=== PATIENT | female | born 1955 | race Hispanic/Latino ===

== ENCOUNTER 2016-08-08 03:50 | Emergency (ER) | payer MEDICARE, MEDICAID ==
[2016-08-08 04:39] LABS: %Eosinophils 2.6 % (0.0-10.0); %Lymphocytes 16.3 % (21.0-51.0); %Monocytes 12.4 % (0.0-10.0); Hemoglobin 9.1 g/dL (12.0-16.0); Mean Corpuscular HGB CONC 33.5 g/dL (32.0-36.0); Mean Corpuscular Hemoglobin 29.9 pg (27.0-31.0); Mean Corpuscular Volume 89.4 fL (81.0-99.0); Mean Platelet Volume 5.9 fL (7.4-10.4); Platelet Count 383 thou/uL (130-400); RBC Distribution Width 13.2 % (11.5-14.5); Red Blood Cell (RBC) Count 3.05 mill/uL (4.20-5.40); White Blood Cell (WBC) Count 13.4 thou/uL (4.8-10.8)
[2016-08-08 04:40] LABS: #Basophils 0.1 thou/uL (0.0-0.2); #Eosinphils 0.4 thou/uL (0.0-0.7); #Lymphocytes 2.2 thou/uL (1.20-3.40); #Monocytes 1.7 thou/uL (0.11-0.59); #Neutrophils 9.1 thou/uL (1.40-6.50); %Basophils 0.7 % (0.0-1.0)
[2016-08-08 04:57] LABS: PTT 32.9 SEC (22.9-36.1); Prothrombin Time 13.8 SEC (12.0-14.7)
[2016-08-08 05:04] LABS: ALT (SGPT) 10 U/L (0-55); AST (SGOT) 11 U/L (5-34); Albumin 3.7 g/dL (3.4-4.8); Alkaline Phosphatase 85 U/L (40-150); Anion Gap 17 mmol/L (10-20); BUN (Urea Nitrogen) 20 mg/dL (9.8-20.1); Bilirubin, Total 0.4 mg/dL (0.2-1.2); CK (CPK) 72 U/L (29-168); Calc. Creatinine Clearance 0 mL/min (70-130); Calcium 9.3 mg/dL (7.8-10.44); Carbon Dioxide 28 mmol/L (23-31); Chloride 98 mmol/L (98-107); Estimated GFR-MDRD 78; Globulin 3.8 g/dL (2.4-3.5); Glucose 119 mg/dL (80-115); Potassium 3.5 mmol/L (3.5-5.1); Protein, Total 7.5 g/dL (5.8-8.1); Sodium 139 mmol/L (136-145)
[2016-08-08 05:09] LABS: CKMB 1.1 ng/mL (0-6.6); Troponin I Less than 0.010 ng/mL (< 0.028)
[2016-08-08 05:10] LABS: CRP (Inflammatory) 1.72 mg/dL (= or < 0.5)
[2016-08-08] MEDS ORDERED: Dexamethasone 10 MG/ML VIAL ONE (05:16)
[2016-08-08] MEDS ORDERED: methylPREDNISolone Acetate 40 mg/ml Vial ONE (05:16)
[2016-08-08] MEDS ORDERED: methylPREDNISolone Sod Succ/PF 125 MG/2 ML VIAL ONE (05:18)
[2016-08-08] MEDS ORDERED: traMADol HCl 50 MG TAB ONE (05:55)
[2016-08-08] MEDS ORDERED: diphenhydrAMINE HCl 25 MG CAP ONE (05:55)
[2016-08-08] MEDS ORDERED: diphenhydrAMINE HCl 50 MG/ML 1 ML VIAL ONE (05:55)
--- NOTE | 2016-08-08 07:38 | RAD ---
CHEST 1 VIEW: HISTORY: Chest pain. Dyspnea. COMPARISON: 05/26/16. FINDINGS: Cardiac silhouette is magnified, enlarged, and partially obscured by increasing patchy bibasilar inf iltrates. Pulmonary vasculature is more engorged with patchy bilateral perihilar infiltrates. Medi astinum is midline with aortic calcification and tracheostomy appliance. No lobar consolidation or pneumothorax are apparent. IMPRESSION: Increasing pulmonary vascular congestion. POS: NATHANIELH
== END 2016-08-08 09:10 ==
LOC: MADERS 03:50
DX: J20.9 Acute bronchitis, unspecified (principal); R07.81 Pleurodynia; D64.9 Anemia, unspecified; I10 Essential (primary) hypertension; E66.9 Obesity, unspecified
CPT/HCPCS: 71010; 80053; 82553; 83735; 83880; 84484; 85025; 85610; 85730; 86140; 93005; 94760; 96365; 96366; 96372; 96375; J1030; J1040; J1100; J1200; J1956; J2930

== ENCOUNTER 2016-09-22 16:19 | Outpatient (CLI) | payer MEDICARE, MEDICAID ==
[2016-09-22 17:41] LABS: Bilirubin Negative (Negative); Blood, Urine Negative (Negative); Clarity Slightly Cloudy (Clear); Glucose, Urine (Dipstick) Negative (Negative); Leukocyte Small (Negative); Nitrite Negative (Negative); Protein, Urine (Dipstick) Negative (Neg-Trace); Urobilinogen 0.2 mg/dL (0.2-1.0); pH, Urine 6.5 (5.0-9.0)
[2016-09-22 17:42] LABS: Bacteria/HPF 4+ HPF (None Seen); RBC/HPF 0-3 HPF (0-3); Squamous Epithelial 0-3 HPF (0-3)
== END 2016-09-22 16:20 | disposition home or self-care (01) ==
LOC: MADLABBHPM 16:19
PROVIDERS: ATTEND Family Medicine
DX: R82.90 Unspecified abnormal findings in urine (principal)
CPT/HCPCS: 81003; 81015; 87077; 87086; 87186

== ENCOUNTER 2016-11-19 11:54 | Emergency (ER) | payer MEDICARE, MEDICAID ==
[2016-11-19 12:54] LABS: #Basophils 0.1 thou/uL (0.0-0.2); #Eosinphils 0.2 thou/uL (0.0-0.7); #Lymphocytes 2.2 thou/uL (1.20-3.40); #Monocytes 0.5 thou/uL (0.11-0.59); #Neutrophils 3.7 thou/uL (1.40-6.50); %Basophils 1.4 % (0.0-1.0); %Eosinophils 3.3 % (0.0-10.0); %Lymphocytes 32.4 % (21.0-51.0); %Monocytes 7.2 % (0.0-10.0); %Neutrophils 55.6 % (42.0-75.0); Mean Corpuscular HGB CONC 31.8 g/dL (32.0-36.0); Mean Corpuscular Hemoglobin 28.4 pg (27.0-31.0); Mean Corpuscular Volume 89.4 fl (81.0-99.0); Mean Platelet Volume 7.3 fL (7.4-10.4); Platelet Count 221 thou/uL (130-400); RBC Distribution Width 15.6 % (11.5-14.5); Red Blood Cell (RBC) Count 4.21 mill/uL (4.20-5.40); White Blood Cell (WBC) Count 6.6 thou/uL (4.8-10.8)
[2016-11-19 13:26] LABS: ALT (SGPT) 14 U/L (8-55); AST (SGOT) 18 U/L (5-34); Albumin 3.4 g/dL (3.4-4.8); Alkaline Phosphatase 37 U/L (40-150); BUN (Urea Nitrogen) 13 mg/dL (9.8-20.1); Bilirubin, Total 0.5 mg/dL (0.2-1.2); Calc. Creatinine Clearance 0 mL/min (70-130); Carbon Dioxide 19 mmol/L (23-31); Chloride 97 mmol/L (98-107); Estimated GFR-MDRD 86; Globulin 4.3 g/dL (2.4-3.5); Glucose 104 mg/dL (80-115); Protein, Total 7.7 g/dL (6.0-8.3); Sodium 137 mmol/L (136-145)
[2016-11-19 13:32] LABS: CKMB 0.6 ng/mL (0-6.6); Troponin I Less than 0.010 ng/mL (< 0.028)
[2016-11-19 13:53] LABS: Calcium 8.8 mg/dL (7.8-10.44); Potassium 4.2 mmol/L (3.5-5.1)
[2016-11-19] MEDS ORDERED: Enoxaparin Sodium 30 MG/0.3 ML SYRINGE ONE (14:09)
[2016-11-19] MEDS ORDERED: Enoxaparin Sodium 60 MG/0.6 ML SYRINGE ONE (14:09)
--- NOTE | 2016-11-19 14:24 | RAD ---
UPRIGHT PORTABLE CHEST 1 VIEW: Date: 11/19/16 HISTORY: 61-year-old female with dyspnea. COMPARISON: 08/08/16. FINDINGS: There is cardiomegaly. Tracheostomy tube in place. There is some mild bilateral vascular congestion without confluent pneumonia, overt edema, or pleural effusion. Stable from prior study. IMPRESSION: Cardiomegaly with mild vascular congestion, stable. No pneumonia or acute edema. POS: NATHANIEL
[2016-11-19] MEDS ORDERED: Acetaminophen 325 MG TAB ONE (15:07)
== END 2016-11-19 15:18 | disposition short-term general hospital (02) ==
LOC: MADERS 11:54
DX: R06.00 Dyspnea, unspecified (principal); E11.9 Type 2 diabetes mellitus without complications; E78.5 Hyperlipidemia, unspecified; I10 Essential (primary) hypertension; E66.9 Obesity, unspecified; F41.9 Anxiety disorder, unspecified; F32.9 Major depressive disorder, single episode, unspecified; Z79.899 Other long term (current) drug therapy
CPT/HCPCS: 36415; 71010; 80053; 82553; 83880; 84484; 85025; 85379; 93005; 94640; 96372; J1650; J7620

== ENCOUNTER 2017-05-01 10:28 | Emergency (ER) | payer MEDICARE, MEDICAID ==
[2017-05-01 10:53] LABS: Hemoglobin 12.2 g/dL (12.0-16.0); Mean Corpuscular HGB CONC 32.7 g/dL (32.0-36.0); Mean Corpuscular Hemoglobin 29.7 pg (27.0-31.0); Platelet Count 228 thou/uL (130-400); RBC Distribution Width 14.7 % (11.5-14.5); Red Blood Cell (RBC) Count 4.09 mill/uL (4.20-5.40); White Blood Cell (WBC) Count 6.9 thou/uL (4.8-10.8)
[2017-05-01 11:01] LABS: INR-International Normal Ratio 1.1; PTT 29.9 SEC (22.9-36.1); Prothrombin Time 13.8 SEC (12.0-14.7)
[2017-05-01 11:02] LABS: D-Dimer Test 0.97 *mcg/mL (0.27-0.43)
[2017-05-01] MEDS ORDERED: Furosemide 40 MG/4 ML VIAL ONE (11:03)
[2017-05-01 11:04] LABS: Sodium 141 mmol/L (136-145)
[2017-05-01 11:05] LABS: ALT (SGPT) 14 U/L (8-55); AST (SGOT) 15 U/L (5-34); Albumin 3.6 g/dL (3.4-4.8); Alkaline Phosphatase 82 U/L (40-150); Anion Gap 16 mmol/L (10-20); BUN (Urea Nitrogen) 15 mg/dL (9.8-20.1); Bilirubin, Total 0.6 mg/dL (0.2-1.2); Calc. Creatinine Clearance 0 mL/min (70-130); Calcium 9.1 mg/dL (7.8-10.44); Carbon Dioxide 29 mmol/L (23-31); Chloride 99 mmol/L (98-107); Estimated GFR-MDRD 76; Globulin 4.2 g/dL (2.4-3.5); Glucose 122 mg/dL (80-115); Potassium 3.4 mmol/L (3.5-5.1); Protein, Total 7.8 g/dL (6.0-8.3)
[2017-05-01 11:13] LABS: Anisocytosis SLIGHT = 6-15 cells (100X) (0-5/hpf); Band 5 % (5-11); Lymphocytes 23 % (21-51); MDiff Complete? YES; Manual Diff?? YES; Monocytes 7 % (0-10); Neutrophil 65 % (42-75)
[2017-05-01 11:14] LABS: Large Platelets SLIGHT; PLT Morphology Comment Appears Adequate
--- NOTE | 2017-05-01 11:21 | RAD ---
CHEST 1 VIEW: HISTORY: A 61-year-old female with dyspnea. COMPARISON: 11/19/16. FINDINGS: Tracheostomy tube in place. Minimal cardiomegaly. Stable-appearing linear and interstitial increase d markings bilaterally. There are some patchy alveolar parenchymal changes in the right upper perihi lar region and lower perihilar region raising concern for developing pneumonia. IMPRESSION: Some patchy alveolar parenchymal changes in the upper right perihilar region and lower right perihila r region possibly representing some minimal pneumonia or pneumonitis. This appearance appears to be new. Cardiomegaly with stable bilateral vascular congestion. Correlate clinically. Developing asym metric edema would be a possibility, although I feel that a developing pneumonia is a more likely pos sibility. POS: MANPREET
[2017-05-01 11:33] LABS: CKMB 0.9 ng/mL (0-6.6); Troponin I Less than 0.010 ng/mL (< 0.028)
== END 2017-05-01 12:32 | disposition short-term general hospital (02) ==
LOC: MADERS 10:28
DX: J81.0 Acute pulmonary edema (principal); E66.01 Morbid (severe) obesity due to excess calories; E11.9 Type 2 diabetes mellitus without complications; E78.5 Hyperlipidemia, unspecified; F32.9 Major depressive disorder, single episode, unspecified; F41.9 Anxiety disorder, unspecified; I10 Essential (primary) hypertension; K21.9 Gastro-esophageal reflux disease without esophagitis; Z86.73 Personal history of transient ischemic attack (TIA), and cerebral infarction without residual deficits; Z79.899 Other long term (current) drug therapy; Z79.51 Long term (current) use of inhaled steroids
CPT/HCPCS: 71010; 80053; 82553; 83605; 83880; 84484; 85025; 85379; 85610; 85730; 87040; 93005; 94640; 94760; 96365; 96375; J1940; J1956; J7620

== ENCOUNTER 2017-06-25 16:00 | Outpatient (CLI) | payer MEDICARE, MEDICAID | END 2017-06-25 16:01 | disposition home or self-care (01) | LOC: MADLAB 16:00 | PROVIDERS: ATTEND Family Medicine | DX: B96.3 Hemophilus influenzae [H. influenzae] as the cause of diseases classified elsewhere (principal) ==

== ENCOUNTER 2022-05-27 11:45 | Outpatient (CLI) | payer MEDICARE, OTHER ==
[2022-05-27 11:59] LABS: #Basophils 0.1 thou/uL (0.0-0.2); #Eosinphils 0.4 thou/uL (0.0-0.7); #Monocytes 0.5 thou/uL (0.11-0.59); #Neutrophils 4.5 thou/uL (1.40-6.50); %Eosinophils 4.9 % (0.0-10.0); %Lymphocytes 27.1 % (21.0-51.0); %Monocytes 6.2 % (0.0-10.0); %Neutrophils 60.7 % (42.0-75.0); Hemoglobin 8.7 g/dL (12.0-16.0); Mean Corpuscular HGB CONC 30.1 g/dL (32.0-36.0); Mean Corpuscular Hemoglobin 27.5 pg (27.0-31.0); Mean Corpuscular Volume 91.3 fl (78.0-98.0); Mean Platelet Volume 6.3 fL (7.4-10.4); Platelet Count 180 10x3/uL (130-400); RBC Distribution Width 14.9 % (11.5-14.5); Red Blood Cell (RBC) Count 3.15 mill/uL (4.20-5.40); White Blood Cell (WBC) Count 7.4 10x3/uL (4.8-10.8)
== END 2022-05-27 11:46 | disposition home or self-care (01) ==
LOC: MADERS 11:45
DX: R39.9 Unspecified symptoms and signs involving the genitourinary system (principal)
CPT/HCPCS: 85025

== ENCOUNTER 2022-07-08 16:18 | Outpatient (CLI) | payer MEDICARE, OTHER ==
[2022-07-08 16:37] LABS: Bilirubin Negative (Negative); Blood, Urine Moderate (Negative); Glucose, Urine (Dipstick) Negative (Negative); Ketone, Urine Negative (Negative); Leukocyte Moderate (Negative); Nitrite Positive (Negative); Protein, Urine (Dipstick) Negative (Neg-Trace); Urobilinogen 0.2 mg/dL (Less than 2)
[2022-07-08 16:38] LABS: Clarity Cloudy (Clear)
[2022-07-08 16:49] LABS: Bacteria/HPF 3+ HPF (None Seen); Squamous Epithelial 0-3 HPF (0-3); WBC/HPF 21-50 HPF (0-3)
== END 2022-07-08 16:19 | disposition home or self-care (01) ==
LOC: MADLAB 16:18
DX: J96.20 Acute and chronic respiratory failure, unspecified whether with hypoxia or hypercapnia (principal); N39.0 Urinary tract infection, site not specified
CPT/HCPCS: 81001; 82274

== ENCOUNTER 2022-09-07 05:52 | Emergency (ER) | payer MEDICARE, OTHER, MEDICAID ==
[2022-09-07] MEDS ORDERED: Ipratropium/Albuterol 3 ML NEB ONE ×2 (06:02→06:44)
[2022-09-07] MEDS ORDERED: methylPREDNISolone Sod Succ/PF 125 MG/2 ML VIAL ONE (06:48)
[2022-09-07 06:55] LABS: Hemoglobin 9.1 g/dL (12.0-16.0); Mean Corpuscular HGB CONC 29.7 g/dL (32.0-36.0); Mean Corpuscular Hemoglobin 26.2 pg (27.0-31.0); Mean Corpuscular Volume 88.3 fl (78.0-98.0); Mean Platelet Volume 7.9 fL (7.4-10.4); Platelet Count 193 10x3/uL (130-400); RBC Distribution Width 17.4 % (11.5-14.5); Red Blood Cell (RBC) Count 3.46 mill/uL (4.20-5.40); White Blood Cell (WBC) Count 14.7 10x3/uL (4.8-10.8)
[2022-09-07 07:01] LABS: Manual Diff?? YES
[2022-09-07 07:05] LABS: ALT (SGPT) Less than 7 U/L (8-55); AST (SGOT) 12 U/L (5-34); Albumin 3.5 g/dL (3.4-4.8); Alkaline Phosphatase 84 U/L (40-110); Anion Gap 16 mmol/L (10-20); BUN (Urea Nitrogen) 14 mg/dL (9.8-20.1); Bilirubin, Total 0.5 mg/dL (0.2-1.2); Calc. Creatinine Clearance 0 mL/min (70-130); Calcium 8.6 mg/dL (7.8-10.44); Carbon Dioxide 35 mmol/L (23-31); Chloride 94 mmol/L (98-107); Estimated GFR 84; Globulin 5.2 g/dL (2.4-3.5); Glucose 114 mg/dL (80-115); Potassium 3.9 mmol/L (3.5-5.1); Protein, Total 8.7 g/dL (5.8-8.1); Sodium 141 mmol/L (136-145)
[2022-09-07 07:06] LABS: Band 8 % (5-11); MDiff Complete? YES; Monocytes 5 % (0-10)
[2022-09-07 07:07] LABS: Eosinophils 2 % (0-10); Lymphocytes 8 % (21-51); Neutrophil 77 % (42-75)
[2022-09-07 07:08] LABS: Anisocytosis SLIGHT = 6-15 cells (100X) (0-5/hpf); Platelet Morphology Comment Appears Adequate
[2022-09-07 07:20] LABS: CKMB 0.5 ng/mL (0-6.6)
[2022-09-07] MEDS ORDERED: Furosemide 20 MG/2 ML VIAL ONE (07:42)
[2022-09-07] MEDS ORDERED: Furosemide 40 MG/4 ML VIAL ONE (07:42)
[2022-09-07] MEDS ORDERED: Cefepime 2 GM VIAL ONE (07:58)
[2022-09-07] MEDS ORDERED: Sodium Chloride 0.9% 100 ML ONE (07:58)
[2022-09-07] MEDS ORDERED: Sodium Chloride 0.9% 250 ML 250 ML ONE (08:21)
[2022-09-07] MEDS ORDERED: Vancomycin 1 GM VIAL ONE (08:21)
[2022-09-07 08:34] LABS: SARS-CoV-2 NAA Rapid Test Not Detected (NotDetected)
== END 2022-09-07 09:05 | disposition short-term general hospital (02) ==
LOC: SUATTDRO 05:52 → MADERS 05:52
PROVIDERS: ADMIT Family Medicine; ATTEND Family Medicine
DX: J18.9 Pneumonia, unspecified organism (principal); J81.0 Acute pulmonary edema; J96.20 Acute and chronic respiratory failure, unspecified whether with hypoxia or hypercapnia; E78.5 Hyperlipidemia, unspecified; E11.9 Type 2 diabetes mellitus without complications; I10 Essential (primary) hypertension; Z20.822 Contact with and (suspected) exposure to COVID-19; Z79.899 Other long term (current) drug therapy
CPT/HCPCS: 71045; 80053; 82553; 83605; 83880; 84484; 85025; 87040; 93005; U0002; 96374; 96375; J0692; J1940; J2930; J3370; J3490; J7050; J7620

== ENCOUNTER 2023-01-27 12:49 | Emergency (ER) | payer MEDICARE, OTHER ==
[2023-01-27] MEDS ORDERED: Cyclobenzaprine 10 MG TAB ONE (13:21)
[2023-01-27 14:41] LABS: Anion Gap 12 mmol/L (10-20); BUN (Urea Nitrogen) 20 mg/dL (9.8-20.1); Calc. Creatinine Clearance 0 mL/min (70-130); Calcium 8.7 mg/dL (7.8-10.44); Carbon Dioxide 34 mmol/L (23-31); Chloride 99 mmol/L (98-107); Estimated GFR 67; Glucose 88 mg/dL (80-115); Potassium 3.4 mmol/L (3.5-5.1); Sodium 142 mmol/L (136-145)
[2023-01-27] MEDS ORDERED: Potassium Chloride 20 MEQ TAB ONE (15:12)
== END 2023-01-27 15:28 | disposition short-term general hospital (02) ==
LOC: MADERS 12:49
DX: M25.551 Pain in right hip (principal); M79.662 Pain in left lower leg; E87.6 Hypokalemia; R79.1 Abnormal coagulation profile; I10 Essential (primary) hypertension; E11.9 Type 2 diabetes mellitus without complications; E66.01 Morbid (severe) obesity due to excess calories; G47.30 Sleep apnea, unspecified; Z86.73 Personal history of transient ischemic attack (TIA), and cerebral infarction without residual deficits; Z79.82 Long term (current) use of aspirin; Z79.899 Other long term (current) drug therapy
CPT/HCPCS: 36415; 80048; 83735; 85379; 99284

== ENCOUNTER 2023-02-05 16:49 | Emergency (ER) | payer MEDICARE, OTHER ==
[2023-02-05] MEDS ORDERED: Ipratropium/Albuterol 3 ML NEB ONE (17:27)
[2023-02-05] MEDS ORDERED: fentaNYL 50 mcg/mL 1 mL Vial ONE (17:40)
[2023-02-05 18:37] LABS: #Basophils 0.1 thou/uL (0.0-0.2); #Eosinphils 0.4 thou/uL (0.0-0.7); #Lymphocytes 2.3 thou/uL (1.20-3.40); #Monocytes 0.5 thou/uL (0.11-0.59); %Basophils 1.1 % (0.0-1.0); %Eosinophils 4.6 % (0.0-10.0); %Lymphocytes 27.5 % (21.0-51.0); %Monocytes 6.2 % (0.0-10.0); %Neutrophils 60.6 % (42.0-75.0); Hematocrit 27.5 % (36.0-47.0); Hemoglobin 8.9 g/dL (12.0-16.0); Mean Corpuscular HGB CONC 32.3 g/dL (32.0-36.0); Mean Corpuscular Hemoglobin 27.3 pg (27.0-31.0); Mean Corpuscular Volume 84.6 fl (78.0-98.0); Mean Platelet Volume 7.2 fL (7.4-10.4); Platelet Count 193 10x3/uL (130-400); RBC Distribution Width 16.4 % (11.5-14.5); Red Blood Cell (RBC) Count 3.25 mill/uL (4.20-5.40); White Blood Cell (WBC) Count 8.2 10x3/uL (4.8-10.8)
[2023-02-05 18:50] LABS: Anion Gap 16 mmol/L (10-20); BUN (Urea Nitrogen) 25 mg/dL (9.8-20.1); Calc. Creatinine Clearance 0 mL/min (70-130); Carbon Dioxide 29 mmol/L (23-31); Chloride 100 mmol/L (98-107); Estimated GFR 61; Glucose 95 mg/dL (80-115); Magnesium 1.8 mg/dL (1.6-2.6); Potassium 3.5 mmol/L (3.5-5.1); Sodium 141 mmol/L (136-145)
[2023-02-05] MEDS ORDERED: Morphine 2 MG/ML VIAL ONE (19:21)
== END 2023-02-05 21:38 ==
LOC: MADERS 16:49
DX: I82.403 Acute embolism and thrombosis of unspecified deep veins of lower extremity, bilateral (principal); M62.838 Other muscle spasm; E11.9 Type 2 diabetes mellitus without complications; E78.5 Hyperlipidemia, unspecified; I10 Essential (primary) hypertension; E66.9 Obesity, unspecified; K21.9 Gastro-esophageal reflux disease without esophagitis; Z79.899 Other long term (current) drug therapy; Z79.82 Long term (current) use of aspirin
CPT/HCPCS: 36415; 80048; 83735; 85025; 96374; 96375; J2272; J3010; J7620

== ENCOUNTER 2023-11-21 02:31 | Emergency (ER) | payer MEDICAID, MEDICARE ==
[2023-11-21] MEDS ORDERED: fentaNYL 50 mcg/mL 1 mL Vial ONE (03:08)
[2023-11-21] MEDS ORDERED: Orphenadrine Citrate 60 MG/2 ML VIAL ONE (03:08)
[2023-11-21 03:25] LABS: #Basophils 0.1 thou/uL (0.0-0.2); #Eosinphils 0.6 thou/uL (0.0-0.7); #Lymphocytes 2.2 thou/uL (1.20-3.40); #Monocytes 0.5 thou/uL (0.11-0.59); #Neutrophils 5.6 thou/uL (1.40-6.50); %Eosinophils 7.1 % (0.0-10.0); %Lymphocytes 24.4 % (21.0-51.0); %Monocytes 5.1 % (0.0-10.0); %Neutrophils 62.4 % (42.0-75.0); Hematocrit 29.9 % (36.0-47.0); Hemoglobin 8.6 g/dL (12.0-16.0); Mean Corpuscular HGB CONC 28.9 g/dL (32.0-36.0); Mean Corpuscular Hemoglobin 26.1 pg (27.0-31.0); Mean Corpuscular Volume 90.3 fl (78.0-98.0); Mean Platelet Volume 5.1 fL (7.4-10.4); Platelet Count 212 10x3/uL (130-400); RBC Distribution Width 18.4 % (11.5-14.5); Red Blood Cell (RBC) Count 3.31 mill/uL (4.20-5.40)
[2023-11-21 03:37] LABS: Anion Gap 14 mmol/L (10-20); BUN (Urea Nitrogen) 25 mg/dL (9.8-20.1); Calc. Creatinine Clearance 0 mL/min (70-130); Calcium 8.7 mg/dL (7.8-10.44); Carbon Dioxide 34 mmol/L (23-31); Chloride 98 mmol/L (98-107); Estimated GFR 44; Glucose 90 mg/dL (80-115); Potassium 3.9 mmol/L (3.5-5.1); Sodium 142 mmol/L (136-145)
== END 2023-11-21 04:28 | disposition short-term general hospital (02) ==
LOC: MADERS 02:31
DX: M79.661 Pain in right lower leg (principal); M79.662 Pain in left lower leg; E66.01 Morbid (severe) obesity due to excess calories; M17.9 Osteoarthritis of knee, unspecified; D64.9 Anemia, unspecified; E78.5 Hyperlipidemia, unspecified; E03.9 Hypothyroidism, unspecified; Z79.82 Long term (current) use of aspirin; Z86.718 Personal history of other venous thrombosis and embolism; Z79.899 Other long term (current) drug therapy
CPT/HCPCS: 80048; 85025; 85379; J2360; J3010; 36415; 96372; 96374

== ENCOUNTER 2023-12-25 06:51 | Emergency (ER) | payer MEDICARE ==
[2023-12-25] MEDS ORDERED: Glycerin Pediatric Sup. (4ml) ONE (08:35)
[2023-12-25] MEDS ORDERED: Lactulose 20 GM (30 mL) UDCUP PO SCH ×2 (08:45)
[2023-12-25] MEDS ORDERED: Glycerin Adult Supp. (24 ct jar) RC SCH (08:45)
[2023-12-25] MEDS ORDERED: Lactulose 20 GM (30 mL) UDCUP ONE (10:54)
== END 2023-12-25 12:08 ==
LOC: MADERS 06:51
DX: K59.00 Constipation, unspecified (principal); E03.9 Hypothyroidism, unspecified; Z79.899 Other long term (current) drug therapy
CPT/HCPCS: 74019

== ENCOUNTER 2024-09-16 07:50 | Emergency (ER) | payer MEDICARE, MEDICAID ==
[2024-09-16 08:58] LABS: #Basophils 0.1 thou/uL (0.0-0.2); #Eosinophils 0.3 thou/uL (0.0-0.7); #Lymphocytes 1.7 thou/uL (1.20-3.40); #Monocytes 0.6 thou/uL (0.11-0.59); %Basophils 0.7 % (0.0-1.0); %Lymphocytes 17.7 % (21.0-51.0); %Monocytes 5.7 % (0.0-10.0); %Neutrophils 72.9 % (42.0-75.0); Hematocrit 30.5 % (36.0-47.0); Hemoglobin 8.8 g/dL (12.0-16.0); Mean Corpuscular HGB CONC 28.8 g/dL (32.0-36.0); Mean Corpuscular Hemoglobin 28.7 pg (27.0-31.0); Mean Corpuscular Volume 99.7 fl (78.0-98.0); Mean Platelet Volume 5.5 fL (7.4-10.4); Platelet Count 197 10x3/uL (130-400); RBC Distribution Width 15.5 % (11.5-14.5); Red Blood Cell (RBC) Count 3.06 mill/uL (4.20-5.40); White Blood Cell (WBC) Count 9.6 10x3/uL (4.8-10.8)
[2024-09-16 09:02] LABS: Platelet Adequacy Comment Appears Adequate
[2024-09-16 09:04] LABS: Hypochromia SLIGHT = 6-15 cells (100X) (0-5/hpf)
[2024-09-16 09:08] LABS: ALT (SGPT) Less than 7 U/L (Less than 34); AST (SGOT) 15 U/L (11-34); Albumin 2.7 g/dL (3.1-4.5); Alkaline Phosphatase 86 U/L (40-110); BUN (Urea Nitrogen) 16 mg/dL (9.8-20.1); Bilirubin, Total 0.3 mg/dL (0.3-1.2); Calc. Creatinine Clearance 0 mL/min (70-130); Calcium 8.5 mg/dL (7.8-10.44); Carbon Dioxide 36 mmol/L (23-31); Estimated GFR 61; Globulin 5.3 g/dL (2.4-3.5); Glucose 104 mg/dL (83-110); Lipase 8 U/L (8-78); Magnesium 2.2 mg/dL (1.6-2.6)
[2024-09-16 09:09] LABS: Troponin I 0.018 ng/mL (< 0.028)
[2024-09-16 09:16] LABS: Anion Gap 15 mmol/L (10-20); Chloride 93 mmol/L (98-107); Potassium 3.9 mmol/L (3.5-5.1); Sodium 141 mmol/L (136-145)
[2024-09-16 09:27] LABS: Bilirubin Negative (Negative); Blood, Urine Large (Negative); Glucose, Urine (Dipstick) Negative (Negative); Ketone, Urine Negative (Negative); Leukocyte Large (Negative); Nitrite Positive (Negative); Protein, Urine (Dipstick) 100 mg/dL (Neg-Trace); Specific Gravity, Urine 1.015 (1.005-1.030); Urobilinogen 0.2 mg/dL (Less than 2); pH, Urine 8.5 (5.0-9.0)
[2024-09-16 09:38] LABS: Clarity Cloudy (Clear)
[2024-09-16 09:53] LABS: Bacteria/HPF Rare-Few HPF (None Seen); CAUTI Indications for Culture Alt mental st,lethar; Squamous Epithelial 0-3 HPF (0-3)
[2024-09-16 09:54] LABS: Triple Phosphate Crystal 4+ HPF (None Seen); Urine Culture Reflex Yes Yes
[2024-09-16] MEDS ORDERED: Cefepime 1 GM VIAL ONE (10:21)
[2024-09-16] MEDS ORDERED: Sodium Chloride 0.9% 100 ML ONE (10:21)
[2024-09-16] MEDS ORDERED: Acetaminophen 500 MG TAB ONE (12:18)
[2024-09-16] MEDS ORDERED: HYDROmorphone 0.5 MG/0.5 ML SYRINGE ONE (14:26)
[2024-09-16] MEDS ORDERED: traMADol HCl 50 MG TAB ONE (14:30)
== END 2024-09-16 14:50 | disposition short-term general hospital (02) ==
LOC: MADERS 07:50
DX: N39.0 Urinary tract infection, site not specified (principal); I50.9 Heart failure, unspecified; R93.89 Abnormal findings on diagnostic imaging of other specified body structures; E66.9 Obesity, unspecified
CPT/HCPCS: 71045; 80053; 81001; 83605; 83690; 83735; 83880; 84484; 85025; 87040; 87077; 87086; 87149 ×2; 87428; 93005; J0692; 36415; 87186; 96365; J1171

== ENCOUNTER 2024-09-18 02:12 | Emergency (ER) | payer MEDICARE, OTHER ==
[2024-09-18] MEDS ORDERED: traMADol HCl 50 MG TAB ONE (02:56)
[2024-09-18] MEDS ORDERED: HYDROmorphone 0.5 MG/0.5 ML SYRINGE ONE (03:04)
== END 2024-09-18 03:12 ==
LOC: MADERS 02:12
DX: G89.29 Other chronic pain (principal); E66.01 Morbid (severe) obesity due to excess calories; I50.9 Heart failure, unspecified; E03.9 Hypothyroidism, unspecified; Z79.890 Hormone replacement therapy; Z79.82 Long term (current) use of aspirin; Z79.899 Other long term (current) drug therapy
CPT/HCPCS: 96374; J1171

== ENCOUNTER 2025-01-06 13:06 | Outpatient (CLI) | payer MEDICARE, MEDICAID ==
[2025-01-06 13:27] LABS: Glucose, Urine (Dipstick) Negative (Negative); Leukocyte Moderate (Negative); Protein, Urine (Dipstick) Negative (Neg-Trace); Specific Gravity, Urine 1.015 (1.005-1.030)
[2025-01-06 13:46] LABS: Bacteria/HPF 2+ HPF (None Seen); RBC/HPF 0-3 HPF (0-3); WBC/HPF Greater than 50 HPF (0-3)
== END 2025-01-06 13:07 | disposition home or self-care (01) ==
LOC: MADLAB 13:06
PROVIDERS: ATTEND Nurse Practitioner Primary Care
DX: N39.0 Urinary tract infection, site not specified (principal)
CPT/HCPCS: 81001; 87077; 87086; 87186

== ENCOUNTER 2025-02-13 19:11 | Outpatient (CLI) | payer MEDICARE, MEDICAID ==
[2025-02-13 19:30] LABS: Anion Gap 19 mmol/L (10-20); BUN (Urea Nitrogen) 38 mg/dL (9.8-20.1); Calc. Creatinine Clearance 0 mL/min (70-130); Calcium 8.2 mg/dL (7.8-10.44); Carbon Dioxide 36 mmol/L (23-31); Chloride 94 mmol/L (98-107); Glucose 81 mg/dL (83-110); Potassium 3.9 mmol/L (3.5-5.1); Sodium 145 mmol/L (136-145)
== END 2025-02-13 19:12 | disposition home or self-care (01) ==
LOC: MADLAB 19:11
PROVIDERS: ATTEND Family Medicine
DX: Z13.228 Encounter for screening for other metabolic disorders (principal); I10 Essential (primary) hypertension
CPT/HCPCS: 80048